=== PATIENT | male | born 1995 | race Caucasian/White ===

== ENCOUNTER 2020-02-12 08:54 | Day surgery (SDC) | payer BC ==
[2020-02-11 14:15] VITALS: BMI 25.8
[2020-02-12] MEDS ORDERED: Glycopyrrolate 0.2 MG/ML 5 ML SYRINGE ONE (09:18)
[2020-02-12] MEDS ORDERED: PROPOFOL 200 MG/20 ML VIAL ONE (09:18)
[2020-02-12] MEDS ORDERED: Ondansetron PF 4 MG/2 ML Vial ONE (09:18)
[2020-02-12] MEDS ORDERED: Rocuronium Bromide 10 MG/ML (10ML VIAL) ONE (09:18)
[2020-02-12] MEDS ORDERED: Dexamethasone 20 MG/5 ML VIAL ONE (09:18)
[2020-02-12] MEDS ORDERED: Ketorolac Tromethamine 30 MG/ML VIAL ONE (09:18)
[2020-02-12] MEDS ORDERED: Lidocaine 1% PF 5 ML VIAL ONE (09:18)
[2020-02-12] MEDS ORDERED: AFRIN NASAL MIST 15 ML BOT ONE (10:10)
[2020-02-12] MEDS ORDERED: Fentanyl 250 MCG/5 ML VIAL ONE (10:16)
[2020-02-12] MEDS ORDERED: Bacitracin Zinc Ointment 30 gm TUBE ONE (10:17)
[2020-02-12] MEDS ORDERED: Lidocaine 1% w/Epinephrine 1:100K 20 ML VIAL ONE (10:17)
[2020-02-12] MEDS ORDERED: EPINEPHrine 1 MG/ML AMP ONE (10:17)
[2020-02-12] MEDS ORDERED: HYDROcodone/Acetaminophen 5/325 mg Tablet ONE ×2 (14:41→15:03)
--- NOTE | 2020-02-13 14:45 | OP ---
DATE OF PROCEDURE: 02/12/2020 PREOPERATIVE DIAGNOSES: 1. Deviated septum. 2. Obstructive hypertrophic inferior turbinates. POSTOPERATIVE DIAGNOSES: 1. Deviated septum. 2. Obstructive hypertrophic inferior turbinates. PROCEDURES PERFORMED: 1. Septoplasty. 2. Bilateral nasal endoscopy with submucosal resection of inferior turbinates. DESCRIPTION OF PROCEDURE: SEPTOPLASTY: After local anesthesia was infiltrated into the submucoperichondrial plane, a standard [place] incision was made with a #15 blade down to the level of the septal cartilage. The caudal elevator was used to elevate the mucoperichondrium from the underlying cartilage. We then proceeded beyond the bony cartilaginous junction and elevated the bony periosteum as well. Great attention was paid to the spur to prevent rent formation in the septal flap. A transcartilaginous incision was then made, while preserving an adequate dorsal and caudal cartilaginous strut for tip support. The deformed cartilage was removed and disarticulated from the bony cartilaginous junction and maxillary crest. This was placed in saline and would later be crushed and returned to the mucoperichondrial envelope. We then elevated the contralateral periosteum from the bony cartilaginous region and removed the deformed portions of the bone and bony spurs. The cartilage was then crushed and placed back into the mucoperichondrial envelope and the mucosa was re-approximated with a quilting stitch composed of rapidly absorbent gut suture. The Bill incision was also closed with interrupted gut suture. At the completion of the case, [place] splints were placed and suture secured to the caudal septum. BILATERAL NASAL ENDOSCOPY WITH SUBMUCOSAL RESECTION OF INFERIOR TURBINATES: After consent was obtained, the patient was identified, brought to the operating room, and placed on the operating room table in the supine position. Consent was obtained, notifying the patient of the possibility of additional infections, bleeding, brain injury, and eye/orbital injury. The patient was placed on the operating room table, and general endotracheal anesthesia and intravenous access was obtained. The patient was then positioned, prepped and draped for endoscopic sinus surgery. Nasal preparation included trimming nasal vestibular hairs and spraying in topical Afrin. We then placed Afrin topical solution on nasal pledgets and strategically located them intranasally. The perinasal mucosa was injected with 1% lidocaine with 1:100,000 epinephrine in the submucoperichondrial plane of the septum, lateral nasal wall, and anterior to the uncinate. The patient was then prepped and draped in a sterile fashion and positioned for endoscopic sinus surgery. With the 0-degree endoscope, the patient underwent systematic nasal endoscopy. There were no suspicious internasal masses or lesions identified. We then focused our attention to the osteomeatal complex region under the middle turbinate. The inferior turbinates were visualized with a 0 degree endoscope and outfractured with a [place] elevator. The inferior medial aspect was cauterized with the electrocautery. Hemostasis was obtained . After adequate airway was established, we turned our attention to the contralateral side and used a similar procedure. Again, a [place] elevator was used to outfracture inferior turbinates under endoscopic visualization. With a suction cautery, the free inferior medial aspect was cauterized under direct visualization along the length of the inferior turbinate. At this point, we then turned our attention to the contralateral side and proceeded with endoscopic sinus surgery. At the completion of the case, [place] keel splints were placed in the ethmoid cavities after the ethmoidectomy. There were no complications. The patient tolerated the procedure well and was discharged to the recovery room in stable condition prior to return to the preoperative day stay with ultimate discharge home. Prescriptions for pain medication and antibiotics were provided. The patient received intramuscular Depo-Medrol during the case. Job ID: [id number]
--- NOTE | 2020-02-17 07:16 | EKG ---
Test Reason : POST OP Blood Pressure : / mmHG Vent. Rate : 051 BPM Atrial Rate : 051 BPM P-R Int : 178 ms QRS Dur : 088 ms QT Int : 398 ms P-R-T Axes : 055 087 054 degrees QTc Int : 366 ms Sinus bradycardia Early repolarization Otherwise normal ECG No previous ECGs available Confirmed by EMILIO FOSTER MD ([id number]) on 02/17/2020 7:15:50 AM Referred By: MARYAN Confirmed By:EMILIO FOSTER MD
== END 2020-02-12 15:00 | disposition home or self-care (01) ==
LOC: SDC 08:54
PROVIDERS: ATTEND Specialist
PROC: 09BM8ZZ Excision of Nasal Septum, Via Natural or Artificial Opening Endoscopic (ICD-10-PCS; principal; 2020-02-12)
PROC: 09TL8ZZ Resection of Nasal Turbinate, Via Natural or Artificial Opening Endoscopic (ICD-10-PCS; principal; 2020-02-12)
DX: J34.2 Deviated nasal septum (principal); J34.3 Hypertrophy of nasal turbinates; J34.89 Other specified disorders of nose and nasal sinuses; F90.9 Attention-deficit hyperactivity disorder, unspecified type; J45.909 Unspecified asthma, uncomplicated; Z87.891 Personal history of nicotine dependence
CPT/HCPCS: 93005; 93010; J0171; J1100; J1885; J2405; J2704; J3010